=== PATIENT | male | born 1955 | race Caucasian/White ===

== ENCOUNTER 2017-09-27 06:50 | Inpatient (IN) ==
--- NOTE | 2017-09-26 21:59 | Discharge Summary ---
<Onelia Lara E - Last Filed: 09/26/17 21:56> Date of Encounter: 09/26/17 - Discharge Diagnosis (1) Osteoarthritis of left hip Priority: Primary Status: Chronic Qualifiers: Osteoarthritis type: unspecified Qualified Code(s): M16.12 - Unilateral primary osteoarthritis, left hip (2) HTN (hypertension) Priority: Secondary Status: Chronic Qualifiers: Hypertension type: unspecified Qualified Code(s): I10 - Essential (primary ) hypertension (3) GERD (gastroesophageal reflux disease) Priority: Secondary Status: Chronic Qualifiers: Esophagitis presence: esophagitis presence not specified Qualified Code(s) : K21.9 - Gastro-esophageal reflux disease without esophagitis (4) Asthma Priority: Secondary Status: Chronic Qualifiers: Asthma severity: unspecified severity Asthma persistence: unspecified Asthma complication type: unspecified Qualified Code(s): J45.909 - Unspecified asthma, uncomplicated - Hospital Course Hospital course: Mr. Ca is a 62 year old male - Time Spent with Patient Total time spent providing and/or coordinating discharge services: - Discharge Medications Home Medications: Aspirin Enteric Coated [Aspirin EC] 325 mg PO DAILY 21 Days #21 tablet. [Rx] OxyCODONE Immed Rel [Roxicodone 5 MG] 5 mg PO Q6HR PRN 7 Days #28 tablet [Rx] Ascorbate Calcium [Vitamin C] 500 mg PO DAILY 09/27/17 [History] Ergocalciferol (VITAMIN D2) [Vitamin D] 400 unit PO DAILY 09/27/17 [History] Meloxicam [Mobic] 15 mg PO DAILY 09/27/17 [History] Montelukast [Singulair] 10 mg PO HS 09/27/17 [History] Multivitamin [One Daily Essential] 1 tab PO DAILY 09/27/17 [History] Omeprazole [PriLOSEC] 40 mg PO DAILY 09/27/17 [History] Sertraline [Zoloft] 100 mg PO DAILY 09/27/17 [History] Allergies/Adverse Reactions: 3 Allergy/AdvReac Type Severity Reaction Status Date / Time lisinopril AdvReac Cough Verified 09/27/17 07:58 Primary care physician: Gab Self, - Patient Status Disposition: Home Health Service Condition: Good - Discharge Instructions Follow Up With: Gab Self DO [Primary Care Provider] - <FaustinEliseo - Last Filed: 09/28/17 06:48> Orders not resulted at time of discharge: Pending orders 09/27/17 01:00 XR hip complete LT [XR] Routine Hemoglobin and Hematocrit [HEME] Routine 09/27/17 07:23 EKG [ECG 12 lead ECG] [ECG] Stat Date of Encounter: 09/28/17 Time of Encounter: 06:47 - Discharge Diagnosis (1) Obesity (BMI 30.0-34.9) Priority: Secondary Status: Chronic (2) Osteoarthritis of left hip Priority: Primary Status: Chronic Qualifiers: Osteoarthritis type: unspecified Qualified Code(s): M16.12 - Unilateral primary osteoarthritis, left hip (3) HTN (hypertension) Priority: Secondary Status: Chronic Qualifiers: Hypertension type: unspecified Qualified Code(s): I10 - Essential (primary ) hypertension (4) GERD (gastroesophageal reflux disease) Priority: Secondary Status: Chronic Qualifiers: Esophagitis presence: esophagitis presence not specified Qualified Code(s) : K21.9 - Gastro-esophageal reflux disease without esophagitis (5) Asthma Priority: Secondary Status: Chronic Qualifiers: Asthma severity: unspecified severity Asthma persistence: unspecified Asthma complication type: unspecified Qualified Code(s): J45.909 - Unspecified asthma, uncomplicated (6) Status post total hip replacement, left Priority: Primary Status: Acute - Hospital Course Hospital course: Mr. Ca is a 62 year old male Status post left total hip replacement The patient had an uneventful postoperative course. They received antibiotics and physical therapy and were discharged in stable condition. There will follow -up in the office in 2 weeks. - Time Spent with Patient Total time spent providing and/or coordinating discharge services: Primary care physician: Gab Self, - Patient Status Functional capacity at discharge: uses cane/walker Overall status at discharge: patient is progressing back to baseline
[2017-09-27] MEDS ORDERED: Ethanol\\Acetic Acid\\Na Ace\\Ben 1,000 ML IRRIG.SOLN IR ONE (07:12)
[2017-09-27] MEDS ORDERED: Albuterol 2.5 MG/3 ML NEBULIZER IH ONE (07:18)
[2017-09-27] MEDS ORDERED: CeFAZolin Syr 2,000MG/20 ML 2,000 MG/20 ML SYRINGE IVPB ONE (07:18)
[2017-09-27] MEDS ORDERED: Ringers Solution, Lactated 1,000 ML IVC SCH (07:30)
[2017-09-27] MEDS ORDERED: *HR* Midazolam HCl 2 MG/2 ML VIAL ONE (08:06)
[2017-09-27] MEDS ORDERED: *HR* FentaNYL (PF) 100 MCG/2 ML VIAL ONE ×2 (08:06→11:27)
[2017-09-27] MEDS ORDERED: *HR* Propofol 200 MG/20 ML VIAL IVP ONE (08:06)
--- NOTE | 2017-09-27 08:06 | Anesthesia Evaluation PreOp ---
Date of Encounter: 09/27/17 Time of Encounter: 08:04 - Past History Planned Operation: Left robotic hip arthroscopy Cardiac History: HTN Pulmonary History: Asthma (mild) ASSOCIATE LOAN OFFICER History: Denies Any Significant HX Other Medical History: Denies Any Significant HX, GERD Anesthesia History: No Prior Anesthetic Complications Alcohol Use: none Drug use: none Medications and Allergies Aspirin Enteric Coated [Aspirin EC] 325 mg PO DAILY 21 Days #21 tablet. [Rx] OxyCODONE Immed Rel [Roxicodone 5 MG] 5 mg PO Q6HR PRN 7 Days #28 tablet [Rx] Ascorbate Calcium [Vitamin C] 500 mg PO DAILY 09/27/17 [History] Ergocalciferol (VITAMIN D2) [Vitamin D] 400 unit PO DAILY 09/27/17 [History] Meloxicam [Mobic] 15 mg PO DAILY 09/27/17 [History] Montelukast [Singulair] 10 mg PO HS 09/27/17 [History] Multivitamin [One Daily Essential] 1 tab PO DAILY 09/27/17 [History] Omeprazole [PriLOSEC] 40 mg PO DAILY 09/27/17 [History] Sertraline [Zoloft] 100 mg PO DAILY 09/27/17 [History] 3 Allergy/AdvReac Type Severity Reaction Status Date / Time lisinopril AdvReac Cough Verified 09/27/17 07:58 - Meds/Allergy Pre-op Review Medications Reviewed: Yes Allergies Reviewed: Yes Beta Blockers on Current Med List: No Anesthesia Results - Labs Laboratory Tests 09/16/17 09/16/17 09/16/17 09:29 09:29 09:29 WBC 7.1 Hgb 14.9 Hct 43.4 Plt Count 166 PT 10.6 INR 1.0 APTT 26.1 Sodium 141 Potassium 4.0 Chloride 107 Carbon Dioxide 28 BUN 17 Creatinine 0.77 Est GFR ( Amer) > 60 Est GFR (Non-Af Amer) > 60 BUN/Creatinine Ratio 22 Anesthesia Exam Last Vital Signs Temp 97.9 F 09/27/17 07:07 Pulse 79 09/27/17 07:07 Resp 18 09/27/17 07:07 BP 144/95 09/27/17 07:07 Pulse Ox 96 09/27/17 07:07 Weight: 89 kg NPO (# of Hours): >> 8 hrs - HEENT Pupil (Motor): Pupils equal, EOMI Mallampati: III Teeth: Normal Oral Opening: Greater than 3 - ASSOCIATE LOAN OFFICER LOC: Oriented ASSOCIATE LOAN OFFICER Motor: Normal RUE, Normal LUE, Normal RLE, Normal LLE, Normal Face - Cardiac Rhythm: Regular Murmur: None - Pulmonary Breath Sounds: bilateral Clear Respiratory Effort: Symmetrical Anesthesia Assess/Plan ASA Score: 3 Modified [place] Scale for Level of Consciousness: Cooperative, oriented, and tranquil Anesthetic Plan: General, Regional Monitoring Plan: Standard Monitors Recovery Plan: PACU
[2017-09-27] MEDS ORDERED: Lidocaine -MPF 2% 2 ML VIAL ONE (08:09)
[2017-09-27] MEDS ORDERED: ROPIVACAINE HCL/PF 0.5% 30 ML VIAL ONE (08:15)
--- NOTE | 2017-09-27 08:20 | History & Physical Report ---
Date of Encounter: 09/27/17 Time of Encounter: 08:20 24 Hour HP Update - Instructions Instructions: If the History and Physical is less than 30 days old and was completed prior to A.M. admission and or procedure and has NOT been updated on calendar day of procedure please complete this update prior to performing procedure. - Update Patient reports changes in Medical Condition: No Changes in examination, assessment, or condition: No Changes in Medication: No Preop tests/diagnostics Reviewed: Yes Surgery Remains Indicated: Yes Consent for Planned Operative Procedure(s) Verified: Yes - Pre-Operative Checklist Preoperative Checklist Indicated: No Prophylactic Antibiotic Ordered: Yes Is VTE Prophylaxis Indicated?: Yes
--- NOTE | 2017-09-27 08:29 | Physician Discharge Referral ---
Home Health/Hosp Referral Info Transfer to: Home Health Attending Provider: Dr. Faustin - Diagnosis (1) Osteoarthritis of left hip Priority: Primary Status: Chronic (2) HTN (hypertension) Priority: Secondary Status: Chronic (3) GERD (gastroesophageal reflux disease) Priority: Secondary Status: Chronic (4) Asthma Priority: Secondary Status: Chronic (5) Status post total hip replacement, left Priority: Primary Status: Acute - Respiratory Orders Smoking Cessation: Smoking cessation has been advised. For more information, call the [place] Tobacco Quit Line at 2-757-YBLW-NOW. - Dressing/Wound Care Site: left hip Type of Dressing/Treatments w/Frequency: Opsite placed. Keep dressing intact until first follow up appointment. If > 50% saturated, notify office, remove dressing and place appropriate dressing back in place. Leave Zipline intact. Opsite dressing is water resistant, not water- proof. OK to shower, but do not get dressing wet. - Diet/Nutrition Diet/Nutrition Orders: Regular - Activity Activity Orders: Up ad juli, Ambulate, Chair, Walker Activity: List: Total Hip replacement Precautions Apply cold therapy 3-6x/day for 20 minutes at a time. Encourage ambulation throughout the day and incentive spirometer 10x/hour. Elevate affected extremity as tolerated. Brace: Wear hip abduction pillow when laying/sleeping - Services Needed Following services are medically necessary services: Nursing, Home Health Aide, Physical Therapy, Occupational Therapy - Transfer Medications Prescriptions: OxyCODONE Immed Rel [Roxicodone 5 MG] 5 mg PO Q6HR PRN 7 Days #28 tablet PRN Reason: Severe Pain Aspirin Enteric Coated [Aspirin EC] 325 mg PO DAILY 21 Days #21 tablet. Home Medications: Aspirin Enteric Coated [Aspirin EC] 325 mg PO DAILY 21 Days #21 tablet. [Rx] OxyCODONE Immed Rel [Roxicodone 5 MG] 5 mg PO Q6HR PRN 7 Days #28 tablet [Rx] Ascorbate Calcium [Vitamin C] 500 mg PO DAILY 09/27/17 [History] Ergocalciferol (VITAMIN D2) [Vitamin D] 400 unit PO DAILY 09/27/17 [History] Meloxicam [Mobic] 15 mg PO DAILY 09/27/17 [History] Montelukast [Singulair] 10 mg PO HS 09/27/17 [History] Multivitamin [One Daily Essential] 1 tab PO DAILY 09/27/17 [History] Omeprazole [PriLOSEC] 40 mg PO DAILY 09/27/17 [History] Sertraline [Zoloft] 100 mg PO DAILY 09/27/17 [History] Allergies/Adverse Reactions: 3 Allergy/AdvReac Type Severity Reaction Status Date / Time lisinopril AdvReac Cough Verified 09/27/17 07:58 Certification: Further, I certify that my clinical findings support that this patient is homebound (i.e. absences from home require considerable and taxing effort and are for medical reasons or adventist services or infrequently or short duration when for other reasons) because: Homebound Reason: Post-surgery restriction and or conditions limit ability to leave home Attestation: My signature below is to certify that this patient is under my care and that I, or nurse practitioner, or a physician web marketing assistant working with me, has a face-to- face encounter with this patient.
[2017-09-27] MEDS ORDERED: Acetaminophen IV 1,000 MG/100 ML INFUS..BTL ONE (08:46)
[2017-09-27] MEDS ORDERED: *HR* Succinylcholine 200 MG/10 ML VIAL IVP ONE (08:49)
[2017-09-27] MEDS ORDERED: Ketamine *HR* 500 MG/10 ML MDV ONE (08:50)
--- NOTE | 2017-09-27 09:00 | Anesthesia Procedures ---
Date of Encounter: 09/27/17 Time of Encounter: 08:40 Procedures: Anesthesia - Nerve Block Procedure Date: 09/27/17 Time: 08:40 Allergies/Adv Reactions: lisinopril Pre-op Diagnosis: left hip OA Surgical Procedure: left KARMEN robotic Checklist: Correct Patient Identifier, Correct procedure, History checked Correct side: Left Blood Thinner: No Monitor Applied: EKG, BP, Pulse Oximetry Supplemental Oxygen via Nasal Cannula (L/min): 2 Sedation: Versed (mg): 2 Sedation: Fentanyl (mcg): 100 Indication: Post Op Analgesia Block Type: Other (fascia iliaca) Catheter placed: No Sterile Technique: Yes Ultrasound used: Yes Anatomy identified: Yes Visual spread of Local: Yes Neuro Stimulation: No Blood on Needle Aspiration: No Smooth Injection of Local: Yes Pain with Injection of Local: No Prep: Chlorhexadine Needle: 22 x 50 mm Stimuplex Local: Ropivacaine (0.25%), Other (decadron 10mg) Volume (cc): 60 Number of Attempts: 1 Complications: None/effective block Vitals: BP 121/80, rr 16, hr 74, spo2 96%
[2017-09-27] MEDS ORDERED: Ondansetron 4 MG/2 ML VIAL ONE (09:21)
[2017-09-27] MEDS ORDERED: Dexamethasone 4 MG/ML VIAL ONE (09:21)
[2017-09-27] MEDS ORDERED: *HR* PHENYLEPHRINE 1,000 MCG/10 ML SYRINGE IVP ONE ×2 (09:27→11:33)
[2017-09-27] MEDS ORDERED: *HR* Labetalol 20 MG/4 ML SYRINGE IVP PRN (09:53)
[2017-09-27] MEDS ORDERED: *HR* OxyCODONE Immed Rel 5 MG TABLET PO PRN (09:53)
[2017-09-27] MEDS ORDERED: *HR* Promethazine 25 MG/ML VIAL IVP PRN (09:53)
--- NOTE | 2017-09-27 10:11 | Orthopedic Operative Note ---
Date of procedure: 09/27/17 Pre-op diagnosis: Left hip arthritis Post-op diagnosis: same Procedure: Procedure: Left Total Hip Replacment robotic-assisted Estimated blood loss: 200 cc Hardware: Metal and polyethylene replacement. Sheryl DM Cup: 56 cup Femoral size 8 stem Head: head-4 with Gabriela Procedural Notes: Grade 4 arthritic changes femoral head acetabular socket, procedure performed with robotic assistance. 4 mm shorter on the operative leg is measured by the CT scan Operative procedure: The patient was brought to the operating room and placed on the operating room table. After general anesthesia was administered the patient was placed in the lateral decubitus position with the operative leg up. All pressure points were padded appropriately and the head was stabilized in the neutral position. The operative extremity was prepped and draped in the sterile surgical fashion patient received IV antibiotic prior to skin incision. 3 Steinmann pins were placed in the iliac crest 3 cm proximal to the anterior superior iliac spine this was for the robotic-assisted sensor. This was done through a small 2 cm incision. A standard posterior approach is made to the operative hip, the incision was made through the skin and subcutaneous tissue hemostasis was obtained with Bovie cautery. Using careful sharp dissection the fascia was identified and incised exposing the external rotators. The femoral checkpoint was placed leg length was measured at this time utilizing robotic assistance. The external rotators were released off the greater trochanter and tagged with # 2 FiberWire suture. The capsule was T'd open and the hip was brought into internal rotation. Patient noted to have grade 4 arthritic changes femoral head. The femoral neck cut was made at the appropriate level roughly 15 mm proximal to the lesser trochanter aced on preoperative templating. An anterior capsulotomy was performed for the anterior retractor. Soft tissues removed from the acetabulum. Patient noted to have grade 4 arthritic changes acetabulum. The acetabulum checkpoint was placed confirmed. The acetabulum was then mapped with robotic assistance. Based on the preoperative plan the acetabulum was reamed in one step with a 55 reamer. The 56 acetabulum was impacted with robotic assistance and 40 degrees of abduction and 11 degrees of anteversion. The hip was brought back in to internal rotation and prepared with the box truck washer followed by the canal finder followed by the reaming process to a size 7/ 8 broaching process in 20 degrees anteversion. It was broached up to the appropriate size 8. Trial reduction revealed leg lengths close to normal. The femoral implant was impacted in place in 20 degrees of anteversion. Trial reduction found the hip to be stable with -4 head and Gabriela. The trials were removed and the real implants were impacted in place. The hip was reduced, patient had robotic confirmed leg length of 10 mm longer than the contralateral side. The hip had excellent stability with forward flexion to 90 degrees adduction of 30 degrees and internal rotation of 60 degrees. The hip had no shuck. The hips after 2 minutes with a antibacterial solution. It was irrigated out with 2 L of pulse irrigation. The checkpoints were removed, Steinmann pins were removed. The hip was closed by the PA. The deep tissue was irrigated and closed deep with #1 PDS suture superficially with 0 PDS suture and skin was closed with Dermabond and zip tie. The patient was placed in a sterile dressing and abduction pillow. The patient was extubated and transferred to the recovery room in stable condition. Surgeon: Eliseo Faustin Was there an assistant cook present: Yes Survey Statistician: Onelia Lara Estimated blood loss (cc): 200 Condition: stable Disposition: PACU
[2017-09-27] MEDS ORDERED: Neostigmine Methylsulfate 3 MG/3 ML SYRINGE ONE (10:27)
[2017-09-27] MEDS: MORPHINE SUL Oral CONC 10 MG/0.5 ML ORAL.SYG SL PRN ×2 (10:50→11:00)
[2017-09-27 11:28] LABS: Hematocrit 42.8 % (37.5-50.1)
[2017-09-27] MEDS ORDERED: *HR* FentaNYL (PF) 100 MCG/2 ML VIAL IVP SCH (11:30)
[2017-09-27] MEDS ORDERED: Temazepam 15 MG CAPSULE PO PRN (11:56)
[2017-09-27] MEDS ORDERED: Ondansetron 4 MG/2 ML VIAL IVP PRN (11:56)
[2017-09-27] MEDS ORDERED: Sennosides 8.6 MG TABLET PO PRN (11:56)
[2017-09-27] MEDS ORDERED: MOM Conc 10 ML UD.LIQ PO PRN (11:56)
[2017-09-27] MEDS ORDERED: Naloxone 0.4 MG/ML INJ IVP PRN (11:56)
--- NOTE | 2017-09-27 12:12 | Anesthesia Evaluation Post Op ---
Date of Encounter: 09/27/17 Time of Encounter: 12:11 - Vital Signs Vital Signs: Last Vital Signs Temp 97.3 F L 09/27/17 12:00 Pulse 88 09/27/17 12:00 Resp 15 09/27/17 12:00 BP 119/72 09/27/17 12:00 Pulse Ox 93 09/27/17 12:00 - Lungs Lungs: Clear Ascult./Percussion - Airway Airway: Non-obstructed - Cardiovascular Regular Rate - Mental Status Mental Status: Alert & Oriented, Answers Appropriately - Pain Pain Scale: 5 - Nausea Vomiting Nausea Vomiting: Not Present - Hydration Hydration: NPO - Discharge PostOp Status: Transfer Patient to floor
[2017-09-27] MEDS: Ketorolac 15 MG/ML VIAL IVP PRN ×2 (14:31→20:44)
[2017-09-27] MEDS: Ascorbic Acid 500 MG TABLET PO SCH (15:53)
[2017-09-27] MEDS: *HR* OxyCODONE Immed Rel 5 MG TABLET PO PRN ×2 (15:53→20:44)
[2017-09-27] MEDS: CeFAZolin Premix DUPLEX 2,000 MG/50 ML BAG IVPB SCH (15:54)
[2017-09-27] MEDS: *HR* Enoxaparin 30 MG/0.3 ML SYRINGE SQ SCH (17:57)
[2017-09-27] MEDS ORDERED: *HR* Enoxaparin 30 MG/0.3 ML SYRINGE SQ SCH (18:00)
[2017-09-27] MEDS: Acetaminophen IV 1,000 MG/100 ML INFUS..BTL IVPB PRN (18:43)
[2017-09-28] MEDS: CeFAZolin Premix DUPLEX 2,000 MG/50 ML BAG IVPB SCH (00:39)
[2017-09-28] MEDS: *HR* OxyCODONE Immed Rel 5 MG TABLET PO PRN ×4 (01:51→21:10)
[2017-09-28] MEDS: *HR* Enoxaparin 30 MG/0.3 ML SYRINGE SQ SCH ×2 (05:44→17:58)
[2017-09-28 06:41] LABS: Hematocrit 38.8 % (37.5-50.1); Hemoglobin 12.8 g/dL (12.9-16.9)
--- NOTE | 2017-09-28 06:49 | Orthopedics Progress Note ---
Date of Encounter: 09/28/17 Time of Encounter: 06:48 - Assessment and Plan (1) Obesity (BMI 30.0-34.9) Current Visit: Yes Status: Chronic (2) Osteoarthritis of left hip Current Visit: No Status: Chronic Qualifiers: Osteoarthritis type: unspecified Qualified Code(s): M16.12 - Unilateral primary osteoarthritis, left hip (3) HTN (hypertension) Current Visit: No Status: Chronic Qualifiers: Hypertension type: unspecified Qualified Code(s): I10 - Essential (primary ) hypertension (4) GERD (gastroesophageal reflux disease) Current Visit: No Status: Chronic Qualifiers: Esophagitis presence: esophagitis presence not specified Qualified Code(s) : K21.9 - Gastro-esophageal reflux disease without esophagitis (5) Asthma Current Visit: No Status: Chronic Qualifiers: Asthma severity: unspecified severity Asthma persistence: unspecified Asthma complication type: unspecified Qualified Code(s): J45.909 - Unspecified asthma, uncomplicated (6) Status post total hip replacement, left Current Visit: Yes Status: Acute Subjective Interval history: Patient was seen this morning doing well without complaints. Afebrile vital signs stable. Operative extremity: Neurovascularly intact Dressing clean dry and intact Calves nontender Assessment and plan: Continue with postoperative care Hematocrit 38 discharged today Objective Vital signs: Vital Signs Temp Pulse Resp BP Pulse Ox 09/28/17 04:15 98.2 F 90 18 130/85 96 09/27/17 23:57 98.1 F 88 18 127/81 96 09/27/17 20:40 98.0 F 92 18 131/80 96 09/27/17 15:46 98.2 F 96 15 130/81 97 09/27/17 14:17 97.0 F L 97 16 117/81 96 09/27/17 13:07 97.6 F 81 16 122/85 96 09/27/17 12:24 97.7 F 89 15 114/78 94 09/27/17 12:00 97.3 F L 88 15 119/72 93 09/27/17 11:48 98.2 F 62 12 120/82 94 09/27/17 11:43 70 12 116/74 94 09/27/17 11:33 62 12 118/74 91 09/27/17 11:23 64 12 119/84 94 09/27/17 11:12 97.6 F 62 12 127/80 93 09/27/17 11:03 72 16 139/90 93 09/27/17 10:53 77 16 139/79 92 09/27/17 10:43 98.6 F 78 16 146/81 93 09/27/17 08:30 75 19 143/102 98 09/27/17 07:07 97.9 F 79 18 144/95 96 Intake and Output 09/27/17 09/27/17 09/28/17 15:59 23:59 07:59 Intake Total 250 / 250 Output Total 200 / 200 450 / 450 500 / 500 Balance -200 / -200 -200 / -200 -500 / -500 Intake: IV Fluids 50 / 50 Ancef Premix DUPLEX 2,000 mg In 50 / 50 50 ml @ 100 mls/hr IVPB Q8HR [facility] Rx#:[id number] Oral 200 / 200 Output: Urine 450 / 450 500 / 500 Estimated Blood Loss 200 / 200 Other: Meal Dinner Percent of Meal Consumed 100% Weight 89.1 kg Patient Weight 09/28/17 23:59 Weight 89.1 kg - Labs CBC & BMP: 09/28/17 06:23 Labs: Abnormal lab results Hgb 12.8 g/dL (12.9-16.9) L 09/28/17 06:23 - VTE Documentation of Mechanical Device: Venous foot pump, device Consult Discharge Plan - Plan Referrals: Gab Self DO [Primary Care Provider] -
[2017-09-28 06:55] LABS: BUN/Creatinine Ratio 20 (6-26); Blood Urea Nitrogen 15 mg/dL (8-23); Calcium 9.2 mg/dL (8.6-10.3); Carbon Dioxide 29 mEq/L (23-29); Chloride 102 mEq/L (98-107); Glucose 149 mg/dL (70-105); Osmolality,Calculated 288 (280-300); Potassium 3.9 mEq/L (3.5-5.1); Sodium 137 mEq/L (136-145); eGFR For African Americans > 60 (> 60); eGFR For Non-African Americans > 60 (> 60)
[2017-09-28] MEDS ORDERED: NON-FORMULARY MEDICATION 1 EACH EACH (Ergocalciferol (Vitamin D2) [Vitamin D] 400 UNIT) PO SCH (09:00)
[2017-09-28] MEDS ORDERED: NON-FORMULARY MEDICATION 1 EACH EACH (Multivitamin [One Daily Essential] 1 TAB) PO SCH (09:00)
[2017-09-28] MEDS: Ketorolac 15 MG/ML VIAL IVP PRN ×2 (09:05→17:59)
[2017-09-28] MEDS: Multivit/Ca/Min/Fe/FA 1 TAB TABLET PO SCH (09:07)
[2017-09-28] MEDS: Ascorbic Acid 500 MG TABLET PO SCH ×3 (09:09→18:04)
--- NOTE | 2017-09-28 13:38 | Event Note ---
Date of Encounter: 09/28/17 Time of Encounter: 11:30 PCR- POD#1 L THR 09/27/17 Ramin PCR - Patient seen at bedside. Pain control: Adequate Participating in PT. All questions and concerns addressed. Educated on use of incentive spirometer, ambulation, and hydration. Patient educated on post-operative restrictions and care. Addressed: see above. D/C plan: HH vs ECF - patient wishing to go home - recommended working again with therapy to see how much he improves before making decision. Patient verbalized understanding.
--- NOTE | 2017-09-28 13:40 | Physician Discharge Referral ---
ExtendedCare Referral Info Transfer To: [facility] Provider in Charge: Dr Faustin - Diagnosis (1) Osteoarthritis of left hip Priority: Primary Status: Chronic (2) HTN (hypertension) Priority: Secondary Status: Chronic (3) GERD (gastroesophageal reflux disease) Priority: Secondary Status: Chronic (4) Asthma Priority: Secondary Status: Chronic (5) Status post total hip replacement, left Priority: Primary Status: Acute Expected Duration of Placement: less than 30 days Prognosis: Good Aware of Diagnosis: Patient Aware of Prognosis: Patient - Transfer Medications Home Medications: Aspirin Enteric Coated [Aspirin EC] 325 mg PO DAILY 21 Days #21 tablet. [Rx] OxyCODONE Immed Rel [Roxicodone 5 MG] 5 mg PO Q6HR PRN 7 Days #28 tablet [Rx] Ascorbate Calcium [Vitamin C] 500 mg PO DAILY 09/27/17 [History] Ergocalciferol (VITAMIN D2) [Vitamin D] 400 unit PO DAILY 09/27/17 [History] Meloxicam [Mobic] 15 mg PO DAILY 09/27/17 [History] Montelukast [Singulair] 10 mg PO HS 09/27/17 [History] Multivitamin [One Daily Essential] 1 tab PO DAILY 09/27/17 [History] Omeprazole [PriLOSEC] 40 mg PO DAILY 09/27/17 [History] Sertraline [Zoloft] 100 mg PO DAILY 09/27/17 [History] Allergies/Adverse Reactions: 3 Allergy/AdvReac Type Severity Reaction Status Date / Time lisinopril AdvReac Cough Verified 09/27/17 07:58 - Respiratory Orders Smoking Cessation: Smoking cessation has been advised. For more information, call the [place] Tobacco Quit Line at 1-996-YNGB-NOW. - Ancillary Orders May use pressure relief devices daily prn, May go on RADHA w/family/respon alliance party w /meds at nurse discretion PRN, May consult with Dentist, Clinical Advisor, Instructor Flying PRN - Mobility Orders Chair, Ambulate - Rehabiliation Orders Rehab Potential: Good Rehab Orders: Evaluation for Physical Therapy, Evaluation for Occupational Therapy Other: Total Hip replacement Precautions Apply cold therapy 3-6x/day for 20 minutes at a time. Encourage ambulation throughout the day and incentive spirometer 10x/hour. Elevate affected extremity as tolerated. Brace: Wear hip abduction pillow when laying/sleeping - Treatments Skin tear care topically daily PRN per policy List/Other: Opsite placed. Keep dressing intact until first follow up appointment. If > 50% saturated, notify office, remove dressing and place appropriate dressing back in place. Leave Zipline intact. Opsite dressing is water resistant, not water- proof. OK to shower, but do not get dressing wet. - Diet Orders Regular CERTIFICATION: I certify that the transfer of the above named patient to an Extended Care Facility is necessary for the continuing treatment of the diagnosis listed. The above information is true and accurate reflection of patient's current condition. Confidential - Redisclosure prohibited without a patient's written consent.
[2017-09-28] MEDS: Acetaminophen IV 1,000 MG/100 ML INFUS..BTL IVPB PRN (14:50)
[2017-09-29] MEDS: Ketorolac 15 MG/ML VIAL IVP PRN ×3 (00:32→19:44)
[2017-09-29] MEDS: *HR* OxyCODONE Immed Rel 5 MG TABLET PO PRN ×5 (01:23→23:35)
[2017-09-29] MEDS: *HR* Enoxaparin 30 MG/0.3 ML SYRINGE SQ SCH ×2 (06:10→17:27)
[2017-09-29 06:13] LABS: Hematocrit 33.7 % (37.5-50.1)
[2017-09-29 06:14] LABS: Hemoglobin 11.1 g/dL (12.9-16.9)
[2017-09-29 06:33] LABS: BUN/Creatinine Ratio 22 (6-26); Blood Urea Nitrogen 13 mg/dL (8-23); Calcium 8.5 mg/dL (8.6-10.3); Carbon Dioxide 30 mEq/L (23-29); Chloride 104 mEq/L (98-107); Glucose 109 mg/dL (70-105); Osmolality,Calculated 287 (280-300); Potassium 3.8 mEq/L (3.5-5.1); Sodium 138 mEq/L (136-145); eGFR For African Americans > 60 (> 60); eGFR For Non-African Americans > 60 (> 60)
--- NOTE | 2017-09-29 08:05 | Orthopedics Progress Note ---
Date of Encounter: 09/29/17 Time of Encounter: 08:04 - Assessment and Plan (1) Obesity (BMI 30.0-34.9) Current Visit: Yes Status: Chronic (2) Osteoarthritis of left hip Current Visit: No Status: Chronic Qualifiers: Osteoarthritis type: unspecified Qualified Code(s): M16.12 - Unilateral primary osteoarthritis, left hip (3) HTN (hypertension) Current Visit: No Status: Chronic Qualifiers: Hypertension type: unspecified Qualified Code(s): I10 - Essential (primary ) hypertension (4) GERD (gastroesophageal reflux disease) Current Visit: No Status: Chronic Qualifiers: Esophagitis presence: esophagitis presence not specified Qualified Code(s) : K21.9 - Gastro-esophageal reflux disease without esophagitis (5) Asthma Current Visit: No Status: Chronic Qualifiers: Asthma severity: unspecified severity Asthma persistence: unspecified Asthma complication type: unspecified Qualified Code(s): J45.909 - Unspecified asthma, uncomplicated (6) Status post total hip replacement, left Current Visit: Yes Status: Acute Subjective Interval history: Patient was seen this morning doing well without complaints. Afebrile vital signs stable. Operative extremity: Neurovascularly intact Dressing clean dry and intact Calves nontender Assessment and plan: Continue with postoperative care Hematocrit 33 discharged today Objective Vital signs: Vital Signs Temp Pulse Resp BP Pulse Ox 09/29/17 06:59 98.2 F 90 18 137/81 93 09/28/17 23:56 99.5 F 93 18 142/78 93 09/28/17 19:22 99.0 F 85 16 125/69 92 09/28/17 15:37 97.8 F 83 16 116/74 92 09/28/17 11:21 98.2 F 94 16 118/72 92 Intake and Output 09/28/17 09/29/17 09/29/17 23:59 07:59 15:59 Intake Total 400 / 400 Output Total 750 / 750 Balance -350 / -350 Intake: Oral 400 / 400 Output: Urine 750 / 750 - Labs CBC & BMP: 09/29/17 05:34 09/29/17 05:34 Labs: Abnormal lab results Hgb 11.1 g/dL (12.9-16.9) L D 09/29/17 05:34 Hct 33.7 % (37.5-50.1) L 09/29/17 05:34 Carbon Dioxide 30 mEq/L (23-29) H 09/29/17 05:34 Creatinine 0.60 mg/dL (0.70-1.30) L 09/29/17 05:34 Glucose 109 mg/dL (70-105) H 09/29/17 05:34 Calcium 8.5 mg/dL (8.6-10.3) L 09/29/17 05:34 - VTE Documentation of Mechanical Device: Venous foot pump, device Consult Discharge Plan - Plan Referrals: Gab Self DO [Primary Care Provider] -
[2017-09-29] MEDS: Multivit/Ca/Min/Fe/FA 1 TAB TABLET PO SCH (08:28)
[2017-09-29] MEDS: Ascorbic Acid 500 MG TABLET PO SCH ×3 (08:28→17:27)
[2017-09-29] MEDS: Ringers Solution, Lactated 1,000 ML IVC SCH ×2 (11:21→11:22)
[2017-09-30] MEDS: *HR* OxyCODONE Immed Rel 5 MG TABLET PO PRN ×3 (03:42→12:07)
[2017-09-30] MEDS: *HR* Enoxaparin 30 MG/0.3 ML SYRINGE SQ SCH (05:30)
[2017-09-30 06:32] VITALS: BP 129/76
[2017-09-30] MEDS: Ascorbic Acid 500 MG TABLET PO SCH ×3 (08:01→08:08)
[2017-09-30] MEDS: Multivit/Ca/Min/Fe/FA 1 TAB TABLET PO SCH (08:06)
--- NOTE | 2017-09-30 09:28 | Orthopedics Progress Note ---
Date of Encounter: 09/30/17 Time of Encounter: 09:28 - Assessment and Plan (1) Obesity (BMI 30.0-34.9) Current Visit: Yes Status: Chronic (2) Osteoarthritis of left hip Current Visit: No Status: Chronic Qualifiers: Osteoarthritis type: unspecified Qualified Code(s): M16.12 - Unilateral primary osteoarthritis, left hip (3) HTN (hypertension) Current Visit: No Status: Chronic Qualifiers: Hypertension type: unspecified Qualified Code(s): I10 - Essential (primary ) hypertension (4) GERD (gastroesophageal reflux disease) Current Visit: No Status: Chronic Qualifiers: Esophagitis presence: esophagitis presence not specified Qualified Code(s) : K21.9 - Gastro-esophageal reflux disease without esophagitis (5) Asthma Current Visit: No Status: Chronic Qualifiers: Asthma severity: unspecified severity Asthma persistence: unspecified Asthma complication type: unspecified Qualified Code(s): J45.909 - Unspecified asthma, uncomplicated (6) Status post total hip replacement, left Current Visit: Yes Status: Acute Subjective Interval history: Patient was seen this morning doing well without complaints. Afebrile vital signs stable. Operative extremity: Neurovascularly intact Dressing clean dry and intact Calves nontender Assessment and plan: Continue with postoperative care discharged today Objective Vital signs: Vital Signs Temp Pulse Resp BP Pulse Ox 09/30/17 06:32 98.5 F 96 18 129/76 94 09/30/17 04:23 98.8 F 91 16 132/81 92 09/29/17 23:25 99.1 F 80 18 119/77 91 09/29/17 21:00 91 09/29/17 19:13 98.8 F 93 18 111/68 91 09/29/17 15:07 97.8 F 18 18 123/80 93 09/29/17 11:02 98.7 F 83 18 117/73 93 Intake and Output 09/29/17 09/30/17 09/30/17 23:59 07:59 15:59 Output Total 600 / 600 400 / 400 Balance -600 / -600 -400 / -400 Output: Urine 600 / 600 400 / 400 - Labs CBC & BMP: 09/29/17 05:34 09/29/17 05:34 Labs: Abnormal lab results Hgb 11.1 g/dL (12.9-16.9) L D 09/29/17 05:34 Hct 33.7 % (37.5-50.1) L 09/29/17 05:34 Carbon Dioxide 30 mEq/L (23-29) H 09/29/17 05:34 Creatinine 0.60 mg/dL (0.70-1.30) L 09/29/17 05:34 Glucose 109 mg/dL (70-105) H 09/29/17 05:34 Calcium 8.5 mg/dL (8.6-10.3) L 09/29/17 05:34 - VTE Documentation of Mechanical Device: Venous foot pump, device Consult Discharge Plan - Plan Referrals: Gab Self DO [Primary Care Provider] -
--- NOTE | 2017-09-30 11:11 | Event Note ---
Date of Encounter: 09/30/17 Time of Encounter: 12:05 PCR- POD#3 L THR 09/27/17 Ramin PCR - Patient seen at bedside. Pain control: Adequate Participating in PT. All questions and concerns addressed. Educated on use of incentive spirometer, ambulation, and hydration. Patient educated on post-operative restrictions and care. Addressed: see above. D/C plan: [facility] today
--- NOTE | 2017-09-30 11:19 | Event Note ---
Date of Encounter: 09/29/17 Time of Encounter: 12:20 PCR- POD#2 L THR 09/27/17 Ramin PCR - Patient seen at bedside. Pain control: Adequate Participating in PT with great difficulty - patient not independent with any activities - PT recommending rehab. Patient thus far requesting home. At this point in discussion patient's cousin and aunt entered room and joined discussion with patient's permission. Rhonda PATRICK and Saray GALLARDO present during discussion and provided recommendations as patient was resistant regarding rehab however discussion regarding safety and family input will need to be taken into account regarding his discharge plan. All questions and concerns addressed. Educated on use of incentive spirometer, ambulation, and hydration. Patient educated on post-operative restrictions and care. Addressed: see above. D/C plan: HH vs ECF -Patient wishes to think on it and discuss with family. Rhonda will work with patient.
== END 2017-09-30 12:20 | disposition home health service (06) | DRG 470 ==
LOC: SAMDAY 06:50 → 3NENU 11:42
PROVIDERS: ADMIT Orthopaedic Surgery; ATTEND Orthopaedic Surgery